=== PATIENT | female | born 1945 | race Caucasian/White ===

== ENCOUNTER 2016-12-05 08:35 | Outpatient (CLI) | payer MEDICARE, BC ==
[2015-02-13 08:28] VITALS: O2SAT 96
== END 2016-12-05 08:36 | disposition home or self-care (01) | DRG 554 ==
LOC: CONVCARE 08:35
PROVIDERS: ATTEND Orthopaedic Surgery
DX: M17.11 Unilateral primary osteoarthritis, right knee (principal); Z87.81 Personal history of (healed) traumatic fracture; Z96.652 Presence of left artificial knee joint
CPT/HCPCS: 72170; 73562

== ENCOUNTER 2017-02-03 10:28 | Day surgery (SDC) | payer MEDICARE, BC ==
[2017-02-03 10:41] VITALS: O2SAT 95
[2017-02-03] MEDS ORDERED: LIDOCAINE HCL 1% MPF SOL ONE (11:11)
[2017-02-03] MEDS ORDERED: TRIAMCINOLONE ACETONIDE 40 MG/ML SUS ONE (11:11)
[2017-02-03 11:48] VITALS: BP 142/74; PULSE 82; RESP 16; TEMP 99.5
== END 2017-02-03 12:01 | disposition home or self-care (01) | DRG 552 ==
LOC: SURG 10:28
PROVIDERS: ATTEND Nurse Anesthetist, Certified Registered
DX: M48.06 Spinal stenosis, lumbar region (principal)
CPT/HCPCS: J2001; J3300

== ENCOUNTER 2017-03-31 13:24 | Day surgery (SDC) | payer MEDICARE, BC ==
[2017-03-31] MEDS ORDERED: DEXAMETHASONE SOD PHOS PF 10 MG/ML SOL IJ ONE (13:57)
[2017-03-31] MEDS ORDERED: LIDOCAINE HCL 1% MPF SOL ONE ×2 (13:58→14:00)
[2017-03-31 14:58] VITALS: BP 137/70; PULSE 80; RESP 16; TEMP 99.6; O2SAT 95
== END 2017-03-31 15:13 | disposition home or self-care (01) | DRG 552 ==
LOC: SURG 13:24
PROVIDERS: ATTEND Nurse Anesthetist, Certified Registered
DX: M48.06 Spinal stenosis, lumbar region (principal)
CPT/HCPCS: J1100; J2001

== ENCOUNTER 2017-05-19 12:20 | Day surgery (SDC) | payer MEDICARE, BC ==
[2017-05-19] MEDS ORDERED: LIDOCAINE HCL 1% MPF SOL ONE (13:14)
[2017-05-19] MEDS ORDERED: TRIAMCINOLONE ACETONIDE 40 MG/ML SUS ONE (13:14)
[2017-05-19] MEDS ORDERED: BUPIVACAINE HCL 0.5% MPF 10 ML SOL ONE (13:15)
[2017-05-19 13:54] VITALS: BP 145/67; PULSE 82; RESP 20
== END 2017-05-19 14:19 | disposition home or self-care (01) | DRG 554 ==
LOC: SURG 12:20
PROVIDERS: ATTEND Nurse Anesthetist, Certified Registered
DX: M12.88 Other specific arthropathies, not elsewhere classified, other specified site (principal)
CPT/HCPCS: J2001; J3300

== ENCOUNTER 2017-12-03 13:20 | Outpatient (CLI) | payer MEDICARE, BC | END 2017-12-03 13:21 | disposition home or self-care (01) | DRG 552 | LOC: CONVCARE 13:20 | PROVIDERS: ATTEND Orthopaedic Surgery | DX: M48.062 Spinal stenosis, lumbar region with neurogenic claudication (principal); M17.11 Unilateral primary osteoarthritis, right knee | CPT/HCPCS: 72170 ==

== ENCOUNTER 2018-10-19 14:13 | Inpatient (IN) | payer MEDICARE, BC ==
[2018-10-19] MEDS ORDERED: DIAZEPAM 5 MG TAB PO PRN (14:22)
[2018-10-19] MEDS: OXYCODONE HYDROCHLORIDE 5 MG TAB PO PRN (20:44)
[2018-10-19] MEDS ORDERED: INSULIN GLARGINE, RECOMBINAN 100 U/ML SOL SC SCH (21:00)
[2018-10-19] MEDS ORDERED: ATORVASTATIN 10 MG TAB PO SCH (21:00)
[2018-10-19] MEDS ORDERED: DOCUSATE SODIUM 100 MG SGL PO PRN (21:00)
[2018-10-19] MEDS: HUMALOG PEN 100 U/ML SC SCH (21:55)
[2018-10-19] MEDS ORDERED: ACETAMINOPHEN 325 MG PO PRN (23:30)
[2018-10-20] MEDS: OXYCODONE HYDROCHLORIDE 5 MG TAB PO PRN ×5 (01:08→22:05)
[2018-10-20] MEDS: PRAMIPEXOLE PO SCH ×2 (01:19→20:50)
[2018-10-20] MEDS: LEVOTHYROXINE SODIUM 50 MCG TAB PO SCH (06:14)
[2018-10-20] MEDS: HUMALOG PEN 100 U/ML SC SCH ×4 (08:12→20:48)
[2018-10-20] MEDS: INSULIN GLARGINE, RECOMBINAN 100 U/ML SOL SC SCH ×2 (08:13→20:47)
[2018-10-20] MEDS ORDERED: FUROSEMIDE 20 MG TAB PO SCH (09:00)
[2018-10-20] MEDS ORDERED: FUROSEMIDE 40 MG TAB PO SCH (09:00)
[2018-10-20] MEDS ORDERED: PATIENT EDUCATION 1 MISC PRN (09:00)
[2018-10-20] MEDS: FUROSEMIDE 20 MG TAB PO SCH ×2 (09:52→12:12)
[2018-10-20] MEDS: ATORVASTATIN 10 MG TAB PO SCH (09:53)
[2018-10-20] MEDS: FLUOXETINE HYDROCHLORIDE 10 MG CAP PO SCH (09:53)
[2018-10-20] MEDS: LISINOPRIL 20 MG TAB PO SCH (09:55)
[2018-10-20] MEDS ORDERED: PRAMIPEXOLE DIHYDROCHLORIDE 0.25 MG TAB PO SCH ×2 (15:00→21:00)
[2018-10-20] MEDS ORDERED: GABAPENTIN 300 MG CAP PO SCH ×2 (15:00→21:00)
[2018-10-20] MEDS: GABAPENTIN 300 MG CAP PO SCH ×2 (16:26→20:49)
[2018-10-20] MEDS: PRAMIPEXOLE 0.25 MG PO SCH (17:19)
[2018-10-20] MEDS: DOCUSATE SODIUM 100 MG SGL PO SCH (20:49)
[2018-10-20] MEDS: SENNOSIDES A AND B 8.6 MG TAB PO SCH (20:49)
[2018-10-20] MEDS ORDERED: SENNOSIDES A AND B 8.6 MG TAB PO SCH (21:00)
[2018-10-21] MEDS: LEVOTHYROXINE SODIUM 50 MCG TAB PO SCH (06:21)
[2018-10-21] MEDS: OXYCODONE HYDROCHLORIDE 5 MG TAB PO PRN ×5 (06:22→22:12)
[2018-10-21] MEDS: INSULIN GLARGINE, RECOMBINAN 100 U/ML SOL SC SCH ×2 (08:09→20:39)
[2018-10-21] MEDS: HUMALOG PEN 100 U/ML SC SCH ×4 (08:11→20:41)
[2018-10-21] MEDS: ATORVASTATIN 10 MG TAB PO SCH (08:23)
[2018-10-21] MEDS: FUROSEMIDE 20 MG TAB PO SCH ×2 (08:25→12:18)
[2018-10-21] MEDS: FLUOXETINE HYDROCHLORIDE 10 MG CAP PO SCH (08:26)
[2018-10-21] MEDS: LISINOPRIL 20 MG TAB PO SCH (08:27)
[2018-10-21] MEDS: PRAMIPEXOLE 0.25 MG PO SCH (15:30)
[2018-10-21] MEDS: GABAPENTIN 300 MG CAP PO SCH ×2 (15:30→20:42)
[2018-10-21] MEDS: PRAMIPEXOLE PO SCH (20:38)
[2018-10-21] MEDS: DOCUSATE SODIUM 100 MG SGL PO SCH (20:41)
[2018-10-21] MEDS: SENNOSIDES A AND B 8.6 MG TAB PO SCH (20:43)
[2018-10-22] MEDS: OXYCODONE HYDROCHLORIDE 5 MG TAB PO PRN ×6 (03:29→23:00)
[2018-10-22] MEDS: LEVOTHYROXINE SODIUM 50 MCG TAB PO SCH (06:04)
[2018-10-22] MEDS: FLUOXETINE HYDROCHLORIDE 10 MG CAP PO SCH (08:13)
[2018-10-22] MEDS: ATORVASTATIN 10 MG TAB PO SCH (08:13)
[2018-10-22] MEDS: FUROSEMIDE 20 MG TAB PO SCH ×2 (08:14→12:17)
[2018-10-22] MEDS: LISINOPRIL 20 MG TAB PO SCH (08:14)
[2018-10-22] MEDS: HUMALOG PEN 100 U/ML SC SCH ×5 (08:20→23:30)
[2018-10-22] MEDS: INSULIN GLARGINE, RECOMBINAN 100 U/ML SOL SC SCH ×2 (08:20→21:19)
[2018-10-22] MEDS: GABAPENTIN 300 MG CAP PO SCH ×2 (14:52→21:29)
[2018-10-22] MEDS: PRAMIPEXOLE 0.25 MG PO SCH (14:54)
[2018-10-22] MEDS: DOCUSATE SODIUM 100 MG SGL PO SCH (21:17)
[2018-10-22] MEDS: PRAMIPEXOLE PO SCH (21:28)
[2018-10-22] MEDS: SENNOSIDES A AND B 8.6 MG TAB PO SCH (21:29)
[2018-10-23] MEDS: LEVOTHYROXINE SODIUM 50 MCG TAB PO SCH (06:33)
[2018-10-23] MEDS: OXYCODONE HYDROCHLORIDE 5 MG TAB PO PRN ×4 (07:41→21:42)
[2018-10-23] MEDS: HUMALOG PEN 100 U/ML SC SCH ×4 (08:24→21:38)
[2018-10-23] MEDS: INSULIN GLARGINE, RECOMBINAN 100 U/ML SOL SC SCH ×2 (08:25→21:42)
[2018-10-23] MEDS: FLUOXETINE HYDROCHLORIDE 10 MG CAP PO SCH (08:57)
[2018-10-23] MEDS: ATORVASTATIN 10 MG TAB PO SCH (08:57)
[2018-10-23] MEDS: FUROSEMIDE 20 MG TAB PO SCH ×2 (08:57→11:58)
[2018-10-23] MEDS: LISINOPRIL 20 MG TAB PO SCH (08:58)
[2018-10-23] MEDS: GABAPENTIN 300 MG CAP PO SCH ×2 (15:14→21:38)
[2018-10-23] MEDS: PRAMIPEXOLE 0.25 MG PO SCH (15:16)
[2018-10-23] MEDS: POLYETHYLENE GLYCOL 17 GM/1 TBS PDS PO PRN (15:48)
[2018-10-23] MEDS: DOCUSATE SODIUM 100 MG SGL PO SCH (21:37)
[2018-10-23] MEDS: SENNOSIDES A AND B 8.6 MG TAB PO SCH (21:41)
[2018-10-23] MEDS: PRAMIPEXOLE PO SCH (21:44)
[2018-10-24] MEDS: OXYCODONE HYDROCHLORIDE 5 MG TAB PO PRN ×6 (03:02→23:20)
[2018-10-24] MEDS: LEVOTHYROXINE SODIUM 50 MCG TAB PO SCH (05:59)
[2018-10-24] MEDS: POLYETHYLENE GLYCOL 17 GM/1 TBS PDS PO PRN (08:20)
[2018-10-24] MEDS: HUMALOG PEN 100 U/ML SC SCH ×4 (08:22→20:10)
[2018-10-24] MEDS: INSULIN GLARGINE, RECOMBINAN 100 U/ML SOL SC SCH ×2 (08:23→20:11)
[2018-10-24] MEDS: LISINOPRIL 20 MG TAB PO SCH (08:29)
[2018-10-24] MEDS: FLUOXETINE HYDROCHLORIDE 10 MG CAP PO SCH (08:29)
[2018-10-24] MEDS: FUROSEMIDE 20 MG TAB PO SCH ×2 (08:30→11:26)
[2018-10-24] MEDS: ATORVASTATIN 10 MG TAB PO SCH (08:30)
[2018-10-24] MEDS: GABAPENTIN 300 MG CAP PO SCH ×2 (15:01→20:04)
[2018-10-24] MEDS: PRAMIPEXOLE 0.25 MG PO SCH (15:02)
[2018-10-24] MEDS: SENNOSIDES A AND B 8.6 MG TAB PO SCH (20:02)
[2018-10-24] MEDS: DOCUSATE SODIUM 100 MG SGL PO SCH (20:05)
[2018-10-24] MEDS: PRAMIPEXOLE PO SCH (20:05)
[2018-10-25] MEDS: OXYCODONE HYDROCHLORIDE 5 MG TAB PO PRN ×4 (05:31→22:29)
[2018-10-25] MEDS: LEVOTHYROXINE SODIUM 50 MCG TAB PO SCH (06:23)
[2018-10-25] MEDS: FUROSEMIDE 20 MG TAB PO SCH ×2 (08:34→12:04)
[2018-10-25] MEDS: ATORVASTATIN 10 MG TAB PO SCH (08:34)
[2018-10-25] MEDS: FLUOXETINE HYDROCHLORIDE 10 MG CAP PO SCH (08:35)
[2018-10-25] MEDS: LISINOPRIL 20 MG TAB PO SCH (08:36)
[2018-10-25] MEDS: HUMALOG PEN 100 U/ML SC SCH ×3 (08:41→17:50)
[2018-10-25] MEDS: INSULIN GLARGINE, RECOMBINAN 100 U/ML SOL SC SCH ×3 (09:10→20:32)
[2018-10-25] MEDS: GABAPENTIN 300 MG CAP PO SCH ×2 (15:08→20:31)
[2018-10-25] MEDS: PRAMIPEXOLE 0.25 MG PO SCH (15:09)
[2018-10-25] MEDS: PRAMIPEXOLE PO SCH (20:29)
[2018-10-25] MEDS: DOCUSATE SODIUM 100 MG SGL PO SCH (20:31)
[2018-10-25] MEDS: SENNOSIDES A AND B 8.6 MG TAB PO SCH (20:32)
[2018-10-26] MEDS: OXYCODONE HYDROCHLORIDE 5 MG TAB PO PRN ×2 (02:42→06:08)
[2018-10-26] MEDS: LEVOTHYROXINE SODIUM 50 MCG TAB PO SCH (06:08)
[2018-10-26 07:33] LABS: BASOPHILS % (AUTO) 1 % (0-3); EOSINOPHILS % (AUTO) 2 % (0-9); HEMATOCRIT 29 % (35-47); HEMOGLOBIN 9.1 gm/dl (12.0-15.5); LYMPHOCYTES % (AUTO) 10.8 % (10-50); MEAN CORPUSCULAR HGB CONC 31.4 gm/dl (32.0-36.0); MEAN CORPUSCULAR VOLUME 89 fL (81-99); NEUTROPHILS % (AUTO) 80.9 % (37-80)
[2018-10-26] MEDS: INSULIN GLARGINE, RECOMBINAN 100 U/ML SOL SC SCH (08:22)
[2018-10-26] MEDS: HUMALOG PEN 100 U/ML SC SCH ×2 (08:23→11:36)
[2018-10-26] MEDS: ATORVASTATIN 10 MG TAB PO SCH (08:26)
[2018-10-26] MEDS: FUROSEMIDE 20 MG TAB PO SCH ×2 (08:26→11:34)
[2018-10-26] MEDS: FLUOXETINE HYDROCHLORIDE 10 MG CAP PO SCH (08:27)
[2018-10-26] MEDS: LISINOPRIL 20 MG TAB PO SCH (08:28)
[2018-10-26 09:09] VITALS: BP 133/69; PULSE 74; RESP 16; TEMP 98.7; O2SAT 95
== END 2018-10-26 12:40 | disposition home or self-care (01) | DRG 946 ==
LOC: ACUTE CARE 17:11
PROVIDERS: ADMIT Family Medicine; ATTEND Family Medicine
PROC: F01K5ZZ Range of Motion and Joint Integrity Assessment of Musculoskeletal System - Upper Back / Upper Extremity (ICD-10-PCS; principal; 2018-10-20)
PROC: F01K0ZZ Muscle Performance Assessment of Musculoskeletal System - Upper Back / Upper Extremity (ICD-10-PCS; 2018-10-20)
PROC: F02Z3ZZ Grooming/Personal Hygiene Assessment (ICD-10-PCS; 2018-10-20)
DX: Z98.890 Other specified postprocedural states (principal); E11.9 Type 2 diabetes mellitus without complications; I10 Essential (primary) hypertension; M48.062 Spinal stenosis, lumbar region with neurogenic claudication
CPT/HCPCS: 36415; 82962; 85018; 85025; 94150; 94640; 94762; J1815; J1817; A6219; A9270; A9270-GY